=== PATIENT | female | born 1965 | race Caucasian/White ===

== ENCOUNTER 2018-02-04 11:46 | Emergency (ER) | payer SELFPAY ==
[2018-02-04] MEDS ORDERED: Fentanyl 100 MCG/2 ML VIAL ONE (12:23)
[2018-02-04] MEDS ORDERED: Ondansetron ODT 4 MG TAB ONE (12:24)
[2018-02-04] MEDS ORDERED: predniSONE 20 MG TAB ONE (12:24)
== END 2018-02-04 13:02 | disposition home or self-care (01) ==
LOC: BURERS 11:46
DX: G89.29 Other chronic pain (principal); M54.5 Low back pain; Z87.891 Personal history of nicotine dependence; Z79.899 Other long term (current) drug therapy
CPT/HCPCS: 96372; J3010; J7506; Q0162